=== PATIENT | female | born 1950 | race Caucasian/White ===

== ENCOUNTER 2018-02-15 09:28 | Emergency (ER) | payer OTHER, BC ==
[2018-02-15 09:47] VITALS: BP 136/91; PULSE 99; TEMP 97.9; BMI 25.5
[2018-02-15] MEDS ORDERED: KETOROLAC TROMETHAMINE 60 MG/2 ML VIAL IM ONE (10:32)
[2018-02-15] MEDS ORDERED: KETOROLAC TROMETHAMINE 60 MG/2 ML VIAL ONE (10:36)
--- NOTE | 2018-02-15 10:38 | PDOC ---
History of Present Illness - General Chief Complaint: Back Pain Stated Complaint: RESPIRATORY Time Seen by Provider: 02/15/18 10:06 History Source: Patient Exam Limitations: No Limitations - History of Present Illness Initial Comments: CHIEF COMPLAINT: 67 y/o afebrile female with PMH HLD c/o right sided upper back pain x 3 days. HISTORY OF PRESENT ILLNESS: The patient states 3 days ago she was cooking breakfast when she felt a twinge in her right upper back and side. she continued on with her day and it worsened. She then developed a cough and that made the pain much worse. The pain is worse with movement, coughing and deep breaths. She denies f/c, n/v/d, SOB, hemoptysis, CP, abd pain, dizziness. SHe has been taking aspirin and tylenol for pain. She gets some relief for a few hours. Past History - Past Medical History Allergies/Adverse Reactions: Allergies Allergy/AdvReac Type Severity Reaction Status Date / Time No Known Allergies Allergy Verified 02/15/18 09:47 Home Medications: Ambulatory Orders Atorvastatin Ca [Lipitor] 40 mg PO HS 02/15/18 COPD: No HTN: Yes Hypercholesterolemia: Yes Thyroid Disease: Yes (HYPO) - Suicide/Smoking/Psychosocial Hx Smoking Status: Yes Smoking History: Never smoked Number of Cigarettes Smoked Daily: 0 Hx Alcohol Use: No Review of Systems - Review of Systems Able to Perform ROS?: Yes Constitutional: No: Chills, Fever HEENTM: No: Ear Pain, Nose Congestion, Throat Pain Respiratory: Yes: Cough. No: Shortness of Breath, Hemoptysis Cardiac (ROS): No: Chest Pain ABD/GI: No: Vomiting Musculoskeletal: Yes: Back Pain (right upper back) Neurological: No: Headache, Numbness, Paresthesia *Physical Exam - Vital Signs Last Vital Signs Temp Pulse Resp BP Pulse Ox 97.9 F 99 H 20 136/91 99 02/15/18 09:45 02/15/18 09:45 02/15/18 09:45 02/15/18 09:45 02/15/18 09:45 - Physical Exam Comments: Ambulatory, well appearing female with controlled upper body movements secondary to pain. General Appearance: Yes: Nourished, Appropriately Dressed. No: Apparent Distress Respiratory/Chest: positive: Chest Tender (TTP of right posterior thoracic chest from T6-T10. Also TTP of right midaxillary chest. No deformities, edema or flail chest. No midline thoracic spine TTP or step offs.), Lungs Clear, Normal Breath Sounds. negative: Respiratory Distress, Crackles, Rhonchi, Wheezing Cardiovascular: positive: Regular Rhythm, Regular Rate Gastrointestinal/Abdominal: positive: Soft. negative: Tender Musculoskeletal: negative: CVA Tenderness (R), CVA Tenderness (L) Neurologic: positive: publicity writer II-XII NML intact, Fully Oriented, Alert Medical Decision Making - Medical Decision Making A/P: 67 y/o female with muscle strain of thoracic spine/chest wall. Plan is as follows: 1. IM toradol Went to reevaluate the patient and could not find her in the waiting room, exam room or vertical area. *DC/Admit/Observation/Transfer Diagnosis at time of Disposition: Chest wall muscle strain Qualifiers: Encounter type: initial encounter Qualified Code(s): S29.011A - Strain of muscle and tendon of front wall of thorax, initial encounter - Discharge Dispostion Disposition: ELOPED Condition at time of disposition: Good - Referrals Referrals: ON STAFF,NOT [Primary Care Provider] - - Patient Instructions Printed Discharge Instructions: DI for Muscle Strain, How To Perform RICE (Rest , Ice, Compress, Elevate) Print Language: FRENCH - Post Discharge Activity
== END 2018-02-15 11:36 | disposition home or self-care (01) ==
LOC: JERFT 09:28
PROC: 3E0233Z Introduction of Anti-inflammatory into Muscle, Percutaneous Approach (ICD-10-PCS; principal; 2018-02-15)
DX: S29.011A Strain of muscle and tendon of front wall of thorax, initial encounter (principal); X58.XXXA Exposure to other specified factors, initial encounter; Y93.89 Activity, other specified; Y92.89 Other specified places as the place of occurrence of the external cause; Y99.8 Other external cause status
CPT/HCPCS: 96372; 99281-25